=== PATIENT | female | born 1975 | race Hispanic/Latino ===

== ENCOUNTER 2020-08-30 13:37 | Emergency (ER) | payer BC, SELFPAY ==
[2020-08-30] MEDS ORDERED: Famotidine 20 MG TAB ONE (14:03)
[2020-08-30] MEDS ORDERED: diphenhydrAMINE 25 MG CAP ONE (14:03)
[2020-08-30] MEDS ORDERED: Dexamethasone 10 MG/ML VIAL ONE (14:04)
== END 2020-08-30 15:05 | disposition home or self-care (01) ==
LOC: ERS 13:37
DX: L50.9 Urticaria, unspecified (principal)
CPT/HCPCS: 99282; J1100; Q0163